=== PATIENT | female | born 1980 | race Two or more races ===

== ENCOUNTER 2020-07-12 19:03 | Emergency (ER) | payer MEDICAID, OTHER ==
[~2020-07-12] VITALS: Ht 152.4 cm; Wt 86.2 kg
[2020-07-12 19:39] VITALS: BP 215/132
[2020-07-12] MEDS ORDERED: cloNIDine HCL 0.1 MG TAB PO ONE ×2 (19:45→20:00)
[2020-07-12 21:39] LABS: Basophils # (auto) 0.1 10 ^3/uL (0-0.2); Basophils % (auto) 0.5 % (0.0-2.0); Eosinophils # (auto) 0.1 10 ^3/uL (0-0.8); Eosinophils % (auto) 0.8 % (0.0-7.0); Hematocrit 44.9 % (36.0-46.0); Hemoglobin 14.4 g/dL (12.2-16.2); Lymphocytes % (auto) 14.5 % (10.0-50.0); Mean Corpuscular Hemoglobin 28.1 pg (28.0-32.0); Mean Corpuscular Volume 87.7 fL (80.0-100.0); Monocytes # (auto) 0.7 10 ^3/uL (0-1.3); Monocytes % (auto) 5.3 % (0.0-12.0); Neutrophils # (auto) 10.7 10 ^3/uL (1.6-8.6); Neutrophils % (auto) 78.9 % (37.0-80.0); Nucleated Red Blood Cells % 0.2 %; Platelet Count (auto) 314 10^3/uL (140-450); Red Blood Cells 5.12 10^6/uL (4.0-5.20); Red Cell Distribution Width 13.5 % (11.8-14.3); White Blood Cell 13.6 10^3/uL (4.4-10.8)
[2020-07-12 23:06] LABS: Albumin 3.3 g/dL (3.4-5.0); Anion Gap 4 (5-15); Calcium 8.4 mg/dL (8.5-10.1); Carbon Dioxide 27 mmol/L (21-32); Chloride 103 mmol/L (98-107); Glucose 128 mg/dL (74-106); Magnesium 2.4 mg/dL (1.6-2.6); Potassium 3.5 mmol/L (3.5-5.1); Sodium 134 mmol/L (136-145)
[2020-07-12 23:14] LABS: Alanine Aminotransferase 51 U/L (13-56); Alkaline Phosphatase 113 U/L (45-117); Aspartate Aminotransferase 18 U/L (15-37); Bilirubin, Total 0.5 mg/dL (0.2-1.0); Blood Urea Nitrogen 12 mg/dL (7-18); GFR African American 137 mL/min; GFR Non-African American 113 mL/min
== END 2020-07-13 02:05 | disposition left against medical advice (07) ==
LOC: ER 19:03
DX: M54.5 Low back pain (principal); Z53.21 Procedure and treatment not carried out due to patient leaving prior to being seen by health care provider
CPT/HCPCS: 36415; 80053; 83735; 83880; 84484; 85025

== ENCOUNTER 2020-07-13 13:29 | Emergency (ER) | payer MEDICAID ==
[~2020-07-13] VITALS: Ht 154.9 cm; Wt 86.2 kg
[2020-07-13 13:52] VITALS: BP 157/103
== END 2020-07-13 15:36 | disposition home or self-care (01) ==
LOC: ER 13:29
DX: D17.9 Benign lipomatous neoplasm, unspecified (principal); F17.210 Nicotine dependence, cigarettes, uncomplicated

== ENCOUNTER 2020-08-16 17:01 | Emergency (ER) | payer MEDICAID ==
[~2020-08-16] VITALS: Ht 154.9 cm; Wt 86.2 kg
[2020-08-16 20:45] VITALS: BP 164/97
== END 2020-08-16 21:16 | disposition home or self-care (01) ==
LOC: ER 17:01
DX: I10 Essential (primary) hypertension (principal); Z48.02 Encounter for removal of sutures

== ENCOUNTER 2020-08-19 09:46 | Emergency (ER) | payer MEDICAID ==
[~2020-08-19] VITALS: Ht 154.9 cm; Wt 86.2 kg
[2020-08-19 10:27] VITALS: BP 168/109
== END 2020-08-19 10:37 | disposition home or self-care (01) ==
LOC: ER 09:46
DX: I10 Essential (primary) hypertension (principal); F17.210 Nicotine dependence, cigarettes, uncomplicated; Z48.02 Encounter for removal of sutures; Z90.710 Acquired absence of both cervix and uterus

== ENCOUNTER 2020-08-21 12:58 | Emergency (ER) | payer MEDICAID ==
[~2020-08-21] VITALS: Ht 154.9 cm; Wt 86.2 kg
[2020-08-21 13:23] VITALS: BP 174/107
== END 2020-08-21 16:24 | disposition home or self-care (01) ==
LOC: ER 12:58
DX: Z48.01 Encounter for change or removal of surgical wound dressing (principal); F17.210 Nicotine dependence, cigarettes, uncomplicated; I10 Essential (primary) hypertension; Z90.710 Acquired absence of both cervix and uterus